=== PATIENT | male | born 1955 | race Caucasian/White ===

== ENCOUNTER 2018-07-24 12:17 | Inpatient (IN) | payer OTHER ==
[2018-07-24 12:47] VITALS: BMI 19.1
--- NOTE | 2018-07-24 14:38 | HP ---
CIWA Score Nausea/Vomitin-Mild Nausea/No Vomiting Muscle Tremors: 3 Anxiety: 3 Agitation: 3 Paroxysmal Sweats: 2 Orientation: 0-Oriented Tacttile Disturbances: 0-None Auditory Disturbances: 0-None Visual Disturbances: 0-None Headache: 1-Very Mild CIWA-Ar Total Score: 13 - Admission Criteria OASAS Guidelines: Admission for Medically Managed Detox: Requires at least one of the followin. CIWA greater than 12 2. Seizures within the past 24 hours 3. Delirium tremens within the past 24 hours 4. Hallucinations within the past 24 hours 5. Acute intervention needed for co occurring medical disorder 6. Acute intervention needed for co occurring psychiatric disorder 7. Severe withdrawal that cannot be handled at a lower level of care (continued vomiting, continued diarrhea, abnormal vital signs) requiring intravenous medication and/or fluids 8. 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 Says he has been drinking too much and Brother brought patient to [facility]. On disability, lives with mother in [place]. alcohol- 3 24 oz of Coors beer, 1 pint of gin daily, no h/o DT's/seizures has been drinking for 40 years uses no other substances. DUR- no meds URINE DRUG SCREEN RESULTS Drug Screen Negative Yes Allergies/Adverse Reactions: Allergies Allergy/AdvReac Type Severity Reaction Status Date / Time Gluten Allergy Uncoded 07/24/18 13:05 Sulfa Allergy Uncoded 07/24/18 13:05 - Ebola screening Have you traveled outside of the country in the last 21 days: No (N) Have you had contact with anyone from an Ebola affected area: No Have you been sick,other than usual withdrawal symptoms: No Do you have a fever: No Patient History - Patient Medical History Hx Asthma: No Hx Chronic Obstructive Pulmonary Disease (COPD): No Hx Cancer: Yes (esophageal cancer-2011 removed stomach, and partially removed esophagus) Hx Cardiac Disorders: No Hx Hypertension: No Hx Seizures: No Hx Diabetes: No Hx Gastrointestinal Disorders: No Hx Genitourinary Disorders: No Hx Sexually Transmitted Disorders: No Hx Renal Disease (ESRD): No Hx Depression: No Hx Suicide Attempt: No Hx Schizophrenia: No - Patient Surgical History Past Surgical History: No Hx Neurologic Surgery: No Hx Cataract Extraction: No Hx Cardiac Surgery: No Hx Lung Surgery: No Hx Breast Surgery: No Hx Breast Biopsy: No Hx Abdominal Surgery: No Hx Appendectomy: No Hx Cholecystectomy: No Hx Genitourinary Surgery: No Hx Section: No Hx Orthopedic Surgery: No Other Surgical History: Esophageal cancer, 2011 Anesthesia Reaction: No - PPD History Previous Implant?: Yes Documented Results: Negative w/o proof Implanted On Prior [facility] Admission?: No - Reproductive History Patient : No - Smoking Cessation Smoking history: Current every day smoker Have you smoked in the past 12 months: Yes Aproximately how many cigarettes per day: 20 Hx Chewing Tobacco Use: No Initiated information on smoking cessation: Yes 'Breaking Loose' booklet given: 07/24/18 - Substances Abused etoh Route: Oral Frequency: Daily Amount used: Three 24 oz beer, 1 pt. jaron Age of first use: 18 Date of Last Use: 07/22/18 Admission Physical Exam S - Vital Signs Vital Signs: Vital Signs - 24 hr 07/24/18 12:46 Temperature 97.4 F L Pulse Rate 84 Respiratory 18 Rate Blood Pressure 149/82 - Physical General Appearance: Yes: Within Normal Limits, Thin HEENTM: Yes: Within Normal Limits, EOMI, Hearing grossly Normal (blind) Respiratory: Yes: Lungs Clear Neck: Yes: Within Normal Limits Abdominal: Yes: Within Normal Limits, Normal Bowel Sounds, Non Tender, Flat Back: Yes: Within Normal Limits, Normal Inspection Musculoskeletal: Yes: Within Normal Limits, full range of Motion, Gait Steady Extremities: Yes: Within Normal Limits, Normal Capillary Refill, Normal Inspection Neurological: Yes: Within Normal Limits, 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
[2018-07-24] MEDS ORDERED: chlordiazePOXIDE HCL 25 MG CAPSULE PO PRN (15:02)
[2018-07-24] MEDS ORDERED: MAGNESIUM HYDROX 2400MG/30ML ORAL SUSPENSION 30 ML CUP PO PRN (15:02)
[2018-07-24] MEDS ORDERED: LOPERAMIDE HCL 2 MG CAPSULE PO PRN (15:02)
[2018-07-24] MEDS ORDERED: IBUPROFEN 400 MG TABLET (FP) PO PRN (15:02)
[2018-07-24] MEDS ORDERED: MAGNESIUM CITRATE 300 ML BOTTLE PO PRN (15:02)
[2018-07-24] MEDS ORDERED: ACETAMINOPHEN 325 MG TABLET (FP) PO PRN (15:02)
[2018-07-24] MEDS ORDERED: P-EPHED 60MG/TRIPROLIDI 2.5MG TABLET PO PRN (15:02)
[2018-07-24] MEDS ORDERED: MENTHOL/PHENOL 1 EACH UD MM PRN (15:02)
[2018-07-24] MEDS ORDERED: guaiFENesin/D-METHORPHAN HB 10 ML UNIT-DOSE CUPS PO PRN (15:02)
[2018-07-24] MEDS ORDERED: hydrOXYzine PAMOATE 25 MG CAPSULE (FP) PO PRN (15:02)
[2018-07-24] MEDS ORDERED: MAG HYDROX/AL HYDROX/SIMETH 30 ML UNIT-DOSE CUP PO PRN (15:02)
[2018-07-24 17:26] LABS: URINE APPEARANCE TURBID; URINE BILIRUBIN NEGATIVE (<2.0 mg/dL); URINE COLOR YELLOW; URINE GLUCOSE (UA) 1+ (NEGATIVE); URINE KETONE NEGATIVE (NEGATIVE); URINE LEUK ESTERASE NEGATIVE (NEGATIVE); URINE NITRITE NEGATIVE (NEGATIVE); URINE PROTEIN NEGATIVE (NEGATIVE)
[2018-07-24] MEDS: chlordiazePOXIDE HCL 25 MG CAPSULE PO SCH ×2 (17:36→23:02)
[2018-07-24] MEDS ORDERED: MELATONIN 5 MG TABLETS PO PRN (22:00)
[2018-07-24] MEDS: THIAMINE HCL 100 MG TABLET (FP) PO SCH (23:02)
[2018-07-24] MEDS: LATANOPROST 0.005% OPHTH SOLN 2.5ML BOTTLE OU SCH (23:03)
[2018-07-24] MEDS: DORZOLAMIDE 2% HCL OPHTHALMIC SOLUTION 10 ML BOTTLE OU SCH (23:03)
[2018-07-25] MEDS: chlordiazePOXIDE HCL 25 MG CAPSULE PO SCH ×2 (05:59→10:41)
[2018-07-25 10:06] LABS: HEMATOCRIT 38.5 % (35.4-49); HEMOGLOBIN 13.1 GM/dL (11.7-16.9); MCH 30.3 pg (25.7-33.7); MCHC 33.9 g/dl (32.0-35.9); MEAN CELL VOLUME 89.1 fl (80-96); MEAN PLT VOLUME 8.1 fl (7.5-11.1); PLATELET COUNT 234 K/MM3 (134-434); RBC 4.32 M/mm3 (4.00-5.60); RDW 15.1 % (11.9-15.9); WHITE BLOOD COUNT 6.4 K/mm3 (4.0-10.0)
[2018-07-25 10:41] LABS: ALBUMIN 3.3 g/dl (3.4-5.0); ALK PHOS 101 U/L (45-117); ANION GAP 8 MMOL/L (8-16); BILIRUBIN,TOTAL 0.8 mg/dL (0.2-1); BLOOD UREA NITROGEN 16 mg/dL (7-18); CALCIUM 8.6 mg/dL (8.5-10.1); CHLORIDE 103 mmol/L (98-107); CO2 28 mmol/L (21-32); CREATININE 0.7 mg/dL (0.55-1.3); GLUCOSE,RANDOM 95 mg/dL (74-106); POTASSIUM 3.5 mmol/L (3.5-5.1); SGOT/AST 14 U/L (15-37); SGPT/ALT 15 U/L (13-61); SODIUM 139 mmol/L (136-145); TOT PROT 5.4 g/dl (6.4-8.2)
[2018-07-25] MEDS: PRENATAL VITAMINS W/ FOLIC ACID TABLET (FP) PO SCH (10:41)
[2018-07-25] MEDS: DORZOLAMIDE 2% HCL OPHTHALMIC SOLUTION 10 ML BOTTLE OU SCH ×2 (10:42→22:34)
[2018-07-25] MEDS: NICOTINE 21 MG/24 HOURS TOPICAL PATCH TD SCH (10:42)
--- NOTE | 2018-07-25 12:19 | PN ---
S CIWA - CIWA Score Nausea/Vomitin-Mild Nausea/No Vomiting Muscle Tremors: 3 Anxiety: 2 Agitation: 1-Slight > Activity Paroxysmal Sweats: 3 Orientation: 0-Oriented Tacttile Disturbances: 0-None Auditory Disturbances: 0-None Visual Disturbances: 0-None Headache: 0-None Present CIWA-Ar Total Score: 10 S Progress Note (SOAP) Subjective: sweats Objective: 07/25/18 12:14 A & O x 3 Calm Slight tremors Vital Signs Temperature 98.1 F 07/25/18 09:10 Pulse Rate 94 H 07/25/18 09:10 Respiratory Rate 16 07/25/18 09:10 Blood Pressure 101/78 07/25/18 09:10 O2 Sat by Pulse Oximetry (%) Laboratory Last Values WBC 6.4 K/mm3 (4.0-10.0) 07/25/18 07:40 RBC 4.32 M/mm3 (4.00-5.60) 07/25/18 07:40 Hgb 13.1 GM/dL (11.7-16.9) 07/25/18 07:40 Hct 38.5 % (35.4-49) 07/25/18 07:40 MCV 89.1 fl (80-96) 07/25/18 07:40 MCH 30.3 pg (25.7-33.7) 07/25/18 07:40 MCHC 33.9 g/dl (32.0-35.9) 07/25/18 07:40 RDW 15.1 % (11.9-15.9) 07/25/18 07:40 Plt Count 234 K/MM3 (134-434) 07/25/18 07:40 MPV 8.1 fl (7.5-11.1) 07/25/18 07:40 Sodium 139 mmol/L (136-145) 07/25/18 07:40 Potassium 3.5 mmol/L (3.5-5.1) 07/25/18 07:40 Chloride 103 mmol/L (98-107) 07/25/18 07:40 Carbon Dioxide 28 mmol/L (21-32) 07/25/18 07:40 Anion Gap 8 MMOL/L (8-16) 07/25/18 07:40 BUN 16 mg/dL (7-18) 07/25/18 07:40 Creatinine 0.7 mg/dL (0.55-1.3) 07/25/18 07:40 Creat Clearance w eGFR > 60 (>60) 07/25/18 07:40 Random Glucose 95 mg/dL (74-106) 07/25/18 07:40 Calcium 8.6 mg/dL (8.5-10.1) 07/25/18 07:40 Total Bilirubin 0.8 mg/dL (0.2-1) 07/25/18 07:40 AST 14 U/L (15-37) L 07/25/18 07:40 ALT 15 U/L (13-61) 07/25/18 07:40 Alkaline Phosphatase 101 U/L (45-117) 07/25/18 07:40 Total Protein 5.4 g/dl (6.4-8.2) L 07/25/18 07:40 Albumin 3.3 g/dl (3.4-5.0) L 07/25/18 07:40 Urine Color Yellow 07/24/18 14:12 Urine Appearance Turbid 07/24/18 14:12 Urine pH 5.0 (5.0-8.0) 07/24/18 14:12 Ur Specific [place] 1.028 (1.010-1.035) 07/24/18 14:12 Urine Protein Negative (NEGATIVE) 07/24/18 14:12 Urine Glucose (UA) 1+ (NEGATIVE) H 07/24/18 14:12 Urine Ketones Negative (NEGATIVE) 07/24/18 14:12 Urine Blood Negative (NEGATIVE) 07/24/18 14:12 Urine Nitrite Negative (NEGATIVE) 07/24/18 14:12 Urine Bilirubin Negative (<2.0 mg/dL) 07/24/18 14:12 Urine Urobilinogen 2.0 mg/dL (0.2-1.0) 07/24/18 14:12 Ur Leukocyte Esterase Negative (NEGATIVE) 07/24/18 14:12 RPR Titer Nonreactive (NONREACTIVE) 07/25/18 07:40 HIV 1&2 Antibody Screen Negative 07/25/18 07:40 HIV P24 Antigen Negative 07/25/18 07:40 Labs noted; URINE GLUCOSE HIGH, RANDOM GLUCOSE WNL Assessment: 07/25/18 12:19 WITHDRAWAL SX Plan: CONTINUE DETOX INCREASE PO WATER HYDRATION
[2018-07-25] MEDS ORDERED: chlordiazePOXIDE HCL 25 MG CAPSULE PO SCH (17:00)
[2018-07-25] MEDS: chlordiazePOXIDE 5 MG CAPSULE PO SCH ×2 (17:31→22:33)
[2018-07-25] MEDS: THIAMINE HCL 100 MG TABLET (FP) PO SCH (22:33)
[2018-07-25] MEDS: LATANOPROST 0.005% OPHTH SOLN 2.5ML BOTTLE OU SCH (22:34)
[2018-07-26] MEDS: chlordiazePOXIDE 5 MG CAPSULE PO SCH ×5 (06:06→22:24)
[2018-07-26] MEDS: PRENATAL VITAMINS W/ FOLIC ACID TABLET (FP) PO SCH ×2 (10:41→11:21)
[2018-07-26] MEDS: DORZOLAMIDE 2% HCL OPHTHALMIC SOLUTION 10 ML BOTTLE OU SCH ×3 (10:41→22:26)
[2018-07-26] MEDS: NICOTINE 21 MG/24 HOURS TOPICAL PATCH TD SCH ×2 (10:42→11:21)
--- NOTE | 2018-07-26 12:56 | PN ---
S CIWA - CIWA Score Nausea/Vomitin-No Nausea/No Vomiting Muscle Tremors: None Anxiety: 2 Agitation: 0-Normal Activity Paroxysmal Sweats: 3 Orientation: 0-Oriented Tacttile Disturbances: 2-Mild Itch/Numbness/Burn Auditory Disturbances: 0-None Visual Disturbances: 1-Very Mild Sensitivity Headache: 0-None Present CIWA-Ar Total Score: 8 BHS Progress Note (SOAP) Subjective: Sweating, Interrupted Sleep. Objective: PATIENT A & O X 3. IN NO ACUTE DISTRESS. 07/26/18 12:57 Vital Signs Temperature 97.5 F L 07/26/18 09:55 Pulse Rate 64 07/26/18 09:55 Respiratory Rate 18 07/26/18 09:55 Blood Pressure 120/75 07/26/18 09:55 O2 Sat by Pulse Oximetry (%) Laboratory Tests 07/24/18 07/25/18 07/25/18 14:12 07:40 07:40 WBC 6.4 RBC 4.32 Hgb 13.1 Hct 38.5 MCV 89.1 MCH 30.3 MCHC 33.9 RDW 15.1 Plt Count 234 MPV 8.1 Sodium Potassium Chloride Carbon Dioxide Anion Gap BUN Creatinine Creat Clearance w eGFR Random Glucose Calcium Total Bilirubin AST ALT Alkaline Phosphatase Total Protein Albumin Urine Color Yellow Urine Appearance Turbid Urine pH 5.0 Ur Specific [place] 1.028 Urine Protein Negative Urine Glucose (UA) 1+ H Urine Ketones Negative Urine Blood Negative Urine Nitrite Negative Urine Bilirubin Negative Urine Urobilinogen 2.0 Ur Leukocyte Esterase Negative RPR Titer HIV 1&2 Antibody Screen Negative HIV P24 Antigen Negative 07/25/18 07/25/18 07:40 07:40 WBC RBC Hgb Hct MCV MCH MCHC RDW Plt Count MPV Sodium 139 Potassium 3.5 Chloride 103 Carbon Dioxide 28 Anion Gap 8 BUN 16 Creatinine 0.7 Creat Clearance w eGFR > 60 Random Glucose 95 Calcium 8.6 Total Bilirubin 0.8 AST 14 L ALT 15 Alkaline Phosphatase 101 Total Protein 5.4 L Albumin 3.3 L Urine Color Urine Appearance Urine pH Ur Specific [place] Urine Protein Urine Glucose (UA) Urine Ketones Urine Blood Urine Nitrite Urine Bilirubin Urine Urobilinogen Ur Leukocyte Esterase RPR Titer Nonreactive HIV 1&2 Antibody Screen HIV P24 Antigen LABS NOTED. Assessment: 07/26/18 12:57 WITHDRAWAL SYMPTOMS. Plan: CONTINUE DETOX. INCREASE DAILY PO FLUID INTAKE.
[2018-07-26] MEDS: LATANOPROST 0.005% OPHTH SOLN 2.5ML BOTTLE OU SCH (22:26)
[2018-07-26] MEDS: THIAMINE HCL 100 MG TABLET (FP) PO SCH (22:26)
[2018-07-27] MEDS: chlordiazePOXIDE 5 MG CAPSULE PO SCH ×2 (06:01→10:20)
[2018-07-27] MEDS: PRENATAL VITAMINS W/ FOLIC ACID TABLET (FP) PO SCH (10:20)
[2018-07-27] MEDS: NICOTINE 21 MG/24 HOURS TOPICAL PATCH TD SCH (10:20)
[2018-07-27] MEDS: DORZOLAMIDE 2% HCL OPHTHALMIC SOLUTION 10 ML BOTTLE OU SCH ×2 (10:21→22:11)
--- NOTE | 2018-07-27 15:32 | PN ---
BHS Progress Note (SOAP) Subjective: Sweating, Interrupted Sleep, Fatigue. Patient Reports that Withdrawal Symptoms in General are Decreasing in Severity. Objective: PATIENT A & O X 3. IN NO ACUTE DISTRESS. 07/27/18 15:32 Vital Signs Temperature 98.3 F 07/27/18 13:04 Pulse Rate 125 H 07/27/18 13:04 Respiratory Rate 18 07/27/18 13:04 Blood Pressure 128/84 07/27/18 13:04 O2 Sat by Pulse Oximetry (%) Laboratory Tests 07/24/18 07/25/18 07/25/18 14:12 07:40 07:40 WBC 6.4 RBC 4.32 Hgb 13.1 Hct 38.5 MCV 89.1 MCH 30.3 MCHC 33.9 RDW 15.1 Plt Count 234 MPV 8.1 Sodium Potassium Chloride Carbon Dioxide Anion Gap BUN Creatinine Creat Clearance w eGFR Random Glucose Calcium Total Bilirubin AST ALT Alkaline Phosphatase Total Protein Albumin Urine Color Yellow Urine Appearance Turbid Urine pH 5.0 Ur Specific [place] 1.028 Urine Protein Negative Urine Glucose (UA) 1+ H Urine Ketones Negative Urine Blood Negative Urine Nitrite Negative Urine Bilirubin Negative Urine Urobilinogen 2.0 Ur Leukocyte Esterase Negative RPR Titer HIV 1&2 Antibody Screen Negative HIV P24 Antigen Negative 07/25/18 07/25/18 07:40 07:40 WBC RBC Hgb Hct MCV MCH MCHC RDW Plt Count MPV Sodium 139 Potassium 3.5 Chloride 103 Carbon Dioxide 28 Anion Gap 8 BUN 16 Creatinine 0.7 Creat Clearance w eGFR > 60 Random Glucose 95 Calcium 8.6 Total Bilirubin 0.8 AST 14 L ALT 15 Alkaline Phosphatase 101 Total Protein 5.4 L Albumin 3.3 L Urine Color Urine Appearance Urine pH Ur Specific [place] Urine Protein Urine Glucose (UA) Urine Ketones Urine Blood Urine Nitrite Urine Bilirubin Urine Urobilinogen Ur Leukocyte Esterase RPR Titer Nonreactive HIV 1&2 Antibody Screen HIV P24 Antigen LABS NOTED. Assessment: 07/27/18 15:33 WITHDRAWAL SYMPTOMS. Plan: CONTINUE DETOX. PATIENT SCHEDULED FOR D/C TOMORROW.
[2018-07-27] MEDS: chlordiazePOXIDE HCL 10 MG CAPSULE PO SCH ×2 (18:04→22:11)
[2018-07-27] MEDS: THIAMINE HCL 100 MG TABLET (FP) PO SCH (22:10)
[2018-07-27] MEDS: LATANOPROST 0.005% OPHTH SOLN 2.5ML BOTTLE OU SCH (22:11)
[2018-07-28] MEDS ORDERED: chlordiazePOXIDE 5 MG CAPSULE PO SCH (06:29)
[2018-07-28] MEDS: chlordiazePOXIDE HCL 10 MG CAPSULE PO SCH (06:31)
[2018-07-28] MEDS: chlordiazePOXIDE 5 MG CAPSULE PO SCH ×2 (06:33→12:13)
[2018-07-28 09:29] VITALS: BP 108/76; PULSE 79; TEMP 97.8
[2018-07-28] MEDS: PRENATAL VITAMINS W/ FOLIC ACID TABLET (FP) PO SCH (09:42)
[2018-07-28] MEDS: NICOTINE 21 MG/24 HOURS TOPICAL PATCH TD SCH (09:42)
[2018-07-28] MEDS: DORZOLAMIDE 2% HCL OPHTHALMIC SOLUTION 10 ML BOTTLE OU SCH (09:43)
--- NOTE | 2018-07-28 16:56 | DS ---
[facility] Detox Discharge Summary Admission Date: 07/24/18 Discharge Date: 07/28/18 - History Present History: Alcohol Dependence Additional Comments: PATIENT GOING TO [facility] ([place], [place]) FOR AFTERCARE. PATIENT WAS DISCHARGED FROM DETOX UNIT IN STABLE MEDICAL CONDITION. Pertinent Past History: Legally Blind, History of Esophageal Cancer (With Partial Removal of Stomach and Esophagus). - Physical Exam Results Vital Signs: Vital Signs Temperature 97.8 F 07/28/18 09:28 Pulse Rate 79 07/28/18 09:28 Respiratory Rate 18 07/28/18 09:28 Blood Pressure 108/76 07/28/18 09:28 O2 Sat by Pulse Oximetry (%) Pertinent Admission Physical Exam Findings: WITHDRAWAL SYMPTOMS. Laboratory Tests 07/24/18 07/25/18 07/25/18 14:12 07:40 07:40 WBC 6.4 RBC 4.32 Hgb 13.1 Hct 38.5 MCV 89.1 MCH 30.3 MCHC 33.9 RDW 15.1 Plt Count 234 MPV 8.1 Sodium Potassium Chloride Carbon Dioxide Anion Gap BUN Creatinine Creat Clearance w eGFR Random Glucose Calcium Total Bilirubin AST ALT Alkaline Phosphatase Total Protein Albumin Urine Color Yellow Urine Appearance Turbid Urine pH 5.0 Ur Specific [place] 1.028 Urine Protein Negative Urine Glucose (UA) 1+ H Urine Ketones Negative Urine Blood Negative Urine Nitrite Negative Urine Bilirubin Negative Urine Urobilinogen 2.0 Ur Leukocyte Esterase Negative RPR Titer HIV 1&2 Antibody Screen Negative HIV P24 Antigen Negative 07/25/18 07/25/18 07:40 07:40 WBC RBC Hgb Hct MCV MCH MCHC RDW Plt Count MPV Sodium 139 Potassium 3.5 Chloride 103 Carbon Dioxide 28 Anion Gap 8 BUN 16 Creatinine 0.7 Creat Clearance w eGFR > 60 Random Glucose 95 Calcium 8.6 Total Bilirubin 0.8 AST 14 L ALT 15 Alkaline Phosphatase 101 Total Protein 5.4 L Albumin 3.3 L Urine Color Urine Appearance Urine pH Ur Specific [place] Urine Protein Urine Glucose (UA) Urine Ketones Urine Blood Urine Nitrite Urine Bilirubin Urine Urobilinogen Ur Leukocyte Esterase RPR Titer Nonreactive HIV 1&2 Antibody Screen HIV P24 Antigen LABS NOTED. - Treatment Hospital Course: Detox Protocol Followed, Detoxed Safely, Responded well, Discharged Condition Good, Rehab Referral Accepted Patient has Accepted a Rehab Referral to: [facility] ([place], [place]). - Medication Discharge Medications: Ambulatory Orders NK [No Known Home Medication] 07/24/18 - Diagnosis (1) Alcohol use disorder Status: Acute (2) Legally blind Status: Chronic - AMA Did Patient Leave Against Medical Advice: No
== END 2018-07-28 12:33 | disposition home or self-care (01) | DRG 897 ==
LOC: YASAS 12:17 → Y6N 12:52
PROVIDERS: ADMIT Surgery; ATTEND Surgery
PROC: HZ2ZZZZ Detoxification Services for Substance Abuse Treatment (ICD-10-PCS; principal; 2018-07-24)
DX: F10.230 Alcohol dependence with withdrawal, uncomplicated (principal); F17.210 Nicotine dependence, cigarettes, uncomplicated; Z85.01 Personal history of malignant neoplasm of esophagus; H54.8 Legal blindness, as defined in USA
CPT/HCPCS: 36415; 80053; 81003; 85027; 86593; 87389